=== PATIENT | male | born 2000 | race Caucasian/White ===

== ENCOUNTER 2019-02-11 03:49 | Emergency (ER) | payer OTHER ==
[~2019-02-11] VITALS: Ht 170.2 cm; Wt 56.8 kg
[2019-02-11] MEDS ORDERED: KETOROLAC 60 MG/2 ML VIAL (J1885) IM ONE (05:30)
[2019-02-11] MEDS ORDERED: PRED20TA PO (06:08)
[2019-02-11] MEDS ORDERED: methylPREDNISolone INJ 125 MG/2 ML VIAL (J2930) IM ONE (06:15)
[2019-02-11 06:26] VITALS: BP 124/71
--- NOTE | 2019-02-11 08:03 | ECGEPIP ---
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
--- NOTE | 2019-02-11 11:24 | REP ---
CHEST PA AND LATERAL: 02/11/2019. CLINICAL HISTORY: Cough and chest pain. FINDINGS: No prior study. Two views show the lungs well inflated. The CP angles are sharply defined. There is no effusion, infiltrate, atelectasis, or mass. Heart, mediastinal and hilar contours are normal. A few cuffed bronchi in the perihilar regions may reflect reactive airway disease or bronchitis. Bony thorax shows no focal lesion. IMPRESSION: 1. Some perihilar changes of bronchitis or reactive airway disease without consolidation, pleural effusion, cardiomegaly, or other acute finding. Electronically Signed by Agustín Belle MD 02/11/2019 07:51 P
[2019-02-11] MEDS ORDERED: PANT40TA3 PO (12:06)
[2019-02-11] MEDS ORDERED: SUCR1SS PO (12:06)
== END 2019-02-11 06:28 | disposition home or self-care (01) ==
LOC: M ED 03:49
DX: J40 Bronchitis, not specified as acute or chronic (principal); J06.9 Acute upper respiratory infection, unspecified; K20.9 Esophagitis, unspecified; Z79.52 Long term (current) use of systemic steroids
CPT/HCPCS: 71046; 93005; 96372; 99283; 99284; J1885; J2930

== ENCOUNTER 2019-02-11 10:54 | Emergency (ER) | payer OTHER ==
[~2019-02-11] VITALS: Ht 170.2 cm; Wt 79.5 kg
[~2019-02-11 10:54] MED LIST: PRED20TA PO
[2019-02-11 10:55] VITALS: BP 157/76
[2019-02-11] MEDS ORDERED: GI COCKTAIL 50ML BTL(HYOSCYAMINE/MAALOX/LIDOCAINE VISCOUS)(1:3:1) PO ONE (11:45)
[2019-02-11] MEDS ORDERED: PANT40TA3 PO (12:06)
[2019-02-11] MEDS ORDERED: SUCR1SS PO (12:06)
== END 2019-02-11 12:12 | disposition home or self-care (01) ==
LOC: M ED 10:54
DX: K20.9 Esophagitis, unspecified (principal); Z79.52 Long term (current) use of systemic steroids